=== PATIENT | female | born 1975 | race Caucasian/White ===

== ENCOUNTER → 2018-03-05 | Outpatient (CLI) | END | disposition home or self-care (01) ==

== ENCOUNTER 2018-03-13 05:44 | Inpatient (IN) | END 2018-03-14 20:25 | disposition home health service (06) | DRG 470 ==

== ENCOUNTER → 2018-03-26 | Outpatient (CLI) | END | disposition home or self-care (01) ==

== ENCOUNTER → 2018-04-02 | Outpatient (CLI) | payer BC ==
[~2018-04-02] MED LIST: AMLO5TAB4 PO; AZU500E PO; BENA40TA56 PO; FOLI-49 PO; GABA300C16 PO; HYDR200T39 PO; MET25 PO
--- NOTE | 2018-04-02 15:24 | CONS ---
Date/Time of Note Date/Time of Note DATE: 04/02/18 TIME: 15:18 Consult Date/Type/Reason Admit Date/Time Initial Consult Date Subjective Carol Reid is a 42-year-old female who is 3 weeks status post right total knee arthroplasty. She has history of rheumatoid arthritis. She was seen last week and she is here today for wound check. At last visit there was a small area of blistering on the perimeter of the Vandana dressing. Otherwise the wound was pristine at last visit. Patient states that the small blisters and eschar have healed. Denies any drainage. Denies any erythema. She does complain of some soreness and pain over her distal thigh. Otherwise her pain is better than before surgery. She is not taking any narcotic pain medication. She is not using any gait aids. She was supposed to be wearing a hinged knee brace given that her MCL was slightly stretched out. However she stopped wearing it as the brace kept falling down while she was walking. She denies any feelings of instability. Objective Weight: 145 pounds Height: 4 foot 11 inches Temperature: 98.2 Heart Rate: 73 Blood Pressure: 131/72 Respiratory Rate: 12 Exam General: Alert, oriented x3. No Acute Distress. Heart: Regular rate and rhythm. Lungs: No respiratory distress. No accessory muscle use. Right lower Extremity: Incision clean, dry, intact. The previous blisters on the perimeter of the dressing are healed. No skin breakdown, no surrounding erythema. Sensation intact to light touch in a sural, saphenous, deep peroneal, superficial peroneal, medial and lateral plantar nerve distribution. Motor is intact, patient able to dorsiflex and plantarflex ankle and extend and flex great toe. Dorsalis Pedis pulse +2, Brisk capillary refill. Compartments are soft. ROM: Extension: 0 Flexion: 90 Varus/ Valgus Stability: There is slight laxity to the MCL although within normal limits. The knee is stable in extension, flexion, and throughout range of motion A/P Stability: Stable Gait: Moderate pace. Mildly antalgic. No gait aid. Assessment/Plan Chief Complaint/Hosp Course 42-year-old female 3 weeks status post right total knee arthroplasty. There are no concerns regarding the wound today. The wound is healed well. The previous blisters have resolved. She has good range of motion. I encouraged her to continue wear the brace for a total of 6 weeks as she has some MCL attenuation. I believe this will scar down. Overall her pain is better than before surgery and she is pleased. Continue DVT prophylaxis with ASA 81 mg twice daily for a total of 6 weeks from surgery. No dental appointments for 3 months from surgery. Continue PT and transition to outpatient PT. Continue to wear hinged knee brace with range of motion as tolerated. Follow-up in 3 weeks for her 6-week postop appointment with x-rays of the right knee. MARIANA CASTREJON MD Apr 02, 2018 15:24
== END | disposition home or self-care (01) ==
LOC: HKI 14:02
PROVIDERS: ATTEND Orthopaedic Surgery Adult Reconstructive Orthopaedic Surgery
DX: M06.9 Rheumatoid arthritis, unspecified (principal); Z96.651 Presence of right artificial knee joint

== ENCOUNTER → 2018-04-27 | Outpatient (CLI) | payer BC ==
--- NOTE | 2018-04-27 17:37 | CONS ---
Date/Time of Note Date/Time of Note DATE: 04/27/18 TIME: 17:33 Consult Date/Type/Reason Admit Date/Time Initial Consult Date Subjective DOS: 03/13/2018 Procedure: Right TKA 6 weeks s/p right TKA who returns today for follow up. The patient is doing well overall. Pain is minimal. Denies F/C. Denies N/T. Denies any drainage from the incision. Narcotic Pain medication: None. Patient is continue gabapentin as she has some hypersensitivity around the knee. Gait Aids: None Pain better than before surgery: Yes Pleased with outcome. Objective Exam General: Alert, oriented x3. No Acute Distress. Heart: Regular rate and rhythm. Lungs: No respiratory distress. No accessory muscle use. Right lower Extremity: Incision is healed. No skin breakdown, no surrounding erythema. Sensation intact to light touch in a sural, saphenous, deep peroneal, superficial peroneal, medial and lateral plantar nerve distribution. Motor is intact, patient able to dorsiflex and plantarflex ankle and extend and flex great toe. Dorsalis Pedis pulse +2, Brisk capillary refill. Compartments are soft. ROM: Extension: 0 Flexion: 95 Varus/ Valgus Stability: Stable in extension, flexion, and throughout range of motion A/P Stability: Stable Gait: Quick pace. Not antalgic. No gait aid. Results/Medications Results 24 hrs Xrays obtained in clinic today and personally reviewed by myself: Bilateral AP and merchant views and a dedicated lateral of the right knee demonstrates right knee s/p TKA. Components in good position and alignment. No signs of wear, osteolysis, loosening, component failure, or fracture. No acute complications. Assessment/Plan Chief Complaint/Hosp Course This is a 42-year-old female with rheumatoid arthritis who is 6 weeks status post right TKA. Overall she is doing very well. Pain is improving. I have a low concern of her range of motion. I encouraged her to continue with physical therapy and try to obtain more flexion. DVT prophylaxis can be stopped at this time. Patient should continue to not have any dental procedures for another 6 weeks and after that she should have antibiotic prophylaxis for life. Follow-up 6 weeks MARIANA CASTREJON MD Apr 27, 2018 17:37
--- NOTE | 2018-04-29 18:13 | RADRPT ---
PROCEDURE: XR Knees. CLINICAL INDICATION: Bilateral knee pain. TECHNIQUE: Total of six views. Frontal, oblique, and lateral views of both knees. COMPARISON: Right knee radiographs dated March 26, 2018. FINDINGS: There is a right knee total arthroplasty which appears satisfactory with no fracture, dislocation, or loosening. There is a small right knee joint effusion. Right knee anterior skin t[place] have been re moved. The left knee demonstrates severe degenerative changes with joint space narrowing, osteophytes, subar ticular sclerosis, and deformity. There is no left knee joint effusion. There is no fracture, lytic lesion, or blastic lesion on either side. IMPRESSION: 1. Satisfactory postoperative appearance of right knee total arthroplasty. 2. Severe degenerative changes of the left knee. 3. Otherwise unremarkable study. RPTAT: QQ .Federico Huynh MD, MD Date Time Electronically viewed and signed by .Federico Huynh MD, MD on 04/29/2018 18:13 .R/
== END | disposition home or self-care (01) ==
LOC: MERGE 04-26 11:00 → HKI 14:11
PROVIDERS: ATTEND Orthopaedic Surgery Adult Reconstructive Orthopaedic Surgery
DX: Z47.1 Aftercare following joint replacement surgery (principal); M06.9 Rheumatoid arthritis, unspecified; Z96.651 Presence of right artificial knee joint

== ENCOUNTER → 2018-06-07 | Outpatient (CLI) | payer BC ==
--- NOTE | 2018-06-07 11:01 | CONS ---
Consult Date/Type/Reason Admit Date/Time Initial Consult Date Date/Time of Note DATE: 06/07/18 TIME: 10:58 Subjective DOS: 03/13/2018 Procedure: Right TKA 42-year-old female with rheumatoid arthritis. 3 months s/p right TKA who returns today for follow up. The patient is doing well overall. Pain is none except for some burning sensation around the incision. Denies F/C. Denies N/T. Denies any drainage from the incision. Patient states that her physical therapy has been disappointing as all they do is electrostimulation. She says that may be at the most they spent a couple minutes on range of motion strengthening only 3 times. Narcotic Pain medication: None Gait Aids: None Pain better than before surgery: Yes Pleased with outcome. Objective Vitals Weight: 150 pounds Height: 4 feet 11 inches Temperature: 98.2 Heart Rate: 74 Blood Pressure: 153/70 Respiratory Rate: 12 Exam General: Alert, oriented x3. No Acute Distress. Heart: Regular rate and rhythm. Lungs: No respiratory distress. No accessory muscle use. Right lower Extremity: Incision healed. No skin breakdown, no surrounding erythema. Sensation intact to light touch in a sural, saphenous, deep peroneal, superficial peroneal, medial and lateral plantar nerve distribution. Motor is intact, patient able to dorsiflex and plantarflex ankle and extend and flex great toe. Dorsalis Pedis pulse +2, Brisk capillary refill. Compartments are soft. ROM: Extension: 0 Flexion: 110 Varus/ Valgus Stability: Stable in extension, flexion, and throughout range of motion A/P Stability: Stable Gait: Fast pace. Non-antalgic. No gait aid. Results/Medications Home Meds Reported Medications Gabapentin* (Gabapentin*) 300 Mg Capsule, 300 MG PO DAILY, #60 CAP 03/13/18 Folic Acid* (Folic Acid*) 1 Mg Tablet, 1 MG PO DAILY, TAB 03/13/18 Methotrexate* (Methotrexate*) 2.5 Mg Tab, 10 MG PO EVERY MONDAY, TAB 03/13/18 Hydroxychloroquine Sulfate* (Hydroxychloroquine Sulfate*) 200 Mg Tablet, 200 MG PO BID, TAB 03/13/18 Sulfasalazine EC* (Azulfidine (Entab)*) 500 Mg Tabec, 500 MG PO TID, #90 TAB 03/13/18 Amlodipine Besylate* (Norvasc*) 5 Mg Tablet, 5 MG PO DAILY, TAB 03/13/18 Benazepril Hcl* (Benazepril Hcl*) 40 Mg Tablet, 40 MG PO DAILY, #30 TAB 03/13/18 Imaging Xrays obtained in clinic today and personally reviewed by myself: Bilateral AP and merchant views and a dedicated lateral of the right knee demonstrates right knee s/p TKA. Components in good position and alignment. No signs of wear, osteolysis, loosening, component failure, or fracture. No acute complications. Assessment/Plan Hospital Course (Demo Recall) 42-year-old female doing well 3 months s/p right TKA -Gabapentin refill for burning sensation around incision -Continue strengthening and range of motion exercises at home. These exercises were reviewed in clinic - DVT Prophylaxis: Completed - FU 9 months for repeat clinical and radiographic exam, or earlier if there are any issues or she wants to discuss her left knee - Antibiotic dental prophylaxis for any cleaning or procedure MARIANA CASTREJON MD Jun 07, 2018 11:01
--- NOTE | 2018-06-08 05:36 | RADRPT ---
PROCEDURE: Bilateral knee series CLINICAL INDICATION: Pain TECHNIQUE: AP weightbearing 45 degrees flexion, bilateral lateral weightbearing, bilateral upright we ightbearing and bilateral sunrise views are obtained . COMPARISON: 04/27/2018 bilateral knee series FINDINGS: Right knee: Again noted is the right total arthroplasty with intact hardware and alignment. No significant interv al change is noted when compared with prior study. No evidence for acute fractures, dislocations or l oosening. A small right knee joint effusion is present. Left knee: Severe tricompartmental joint space narrowing, osteophyte formation, subarticular sclerosis and osteo phytes are noted with associated mild deformity. No acute fractures or dislocations are present. A mo derate knee effusion is present. IMPRESSION: 1. Status post right total knee arthroplasty with intact hardware and no evidence for fractures, dis locations or loosening. 2. Severe left knee tricompartmental osteoarthritis with severe joint space narrowing and sclerosis. RPTAT: HDC .Rita Castelan MD, MD Date Time Electronically viewed and signed by .Rita Castelan MD, on 06/08/2018 05:35 .C/
== END | disposition home or self-care (01) ==
LOC: HKI 09:46
PROVIDERS: ATTEND Orthopaedic Surgery Adult Reconstructive Orthopaedic Surgery
DX: M06.9 Rheumatoid arthritis, unspecified (principal); Z96.651 Presence of right artificial knee joint
CPT/HCPCS: 73564

== ENCOUNTER → 2018-10-08 | Outpatient (CLI) | payer BC ==
--- NOTE | 2018-10-08 16:04 | CONS ---
Consult Date/Type/Reason Admit Date/Time Initial Consult Date Reason for Consultation Left knee pain Date/Time of Note DATE: 10/08/18 TIME: 15:57 Subjective Carol Reid is a 42-year-old female with rheumatoid arthritis well-known to me. She is on methotrexate and sulfasalazine. She is 8 months status post right total knee arthroplasty for rheumatoid arthritis. She has no complaints with this except for tenderness when kneeling. She presents today with worsening left knee pain. She had a steroid injection by her lead installer about 3 months ago to her left knee. This helped for about 2 months. Most of her pain is around her patella and anterior of the knee. She does have crepitance. She does admit to a limp. It does wake her up at night. Pain is rated 7/10. Is described as sharp. The pain is especially exacerbated when walking downstairs. Resting, ice, injection may feel better. Denies numbness and tingling. No previous surgery to this knee. At this time she is now not wanting to proceed with left total knee arthroplasty. She would like to continue conservative treatment. Objective Vitals Weight: 160 pound Height: 4 foot 11 inches Temperature: 90.4 Heart Rate: 80 Blood Pressure: 144/73 Respiratory Rate: 12 Exam General: Alert, oriented x3. No Acute Distress. Heart: Regular rate and rhythm. Lungs: No respiratory distress. No accessory muscle use. Musculoskeletal: Left Knee This is a well developed female who is alert, oriented times three and in no apparent distress. Skin is intact over the left knee as well as the lower extremity with no abrasions, lacerations, or ulcerations. Observation of the patient's gait reveals an antalgic gait with No thrust. Frontal plane alignment is neutral. There is mild pain on palpation of medial and lateral joint line. The patient demonstrates grinding anteriorly with ROM. Range of motion: 5 extension to approximately 100 degrees of flexion. Collateral ligament testing reveals no instability with varus or valgus stress at 0 and 30 degrees of flexion. Negative Guilherme's and negative posterior drawer. Neurovascularly intact with 5/5 EHL/tibialis anterior/gastroc. Sensation intact to light touch in a sural, saphenous, deep peroneal, superficial peroneal, medial and lateral plantar nerve distribution. Palpable, symmetric dorsalis pedis and posterior tibial pulses in both lower extremities. Hip examination normal. Results/Medications Home Meds Reported Medications Gabapentin* (Gabapentin*) 300 Mg Capsule, 300 MG PO DAILY, #60 CAP 03/13/18 Folic Acid* (Folic Acid*) 1 Mg Tablet, 1 MG PO DAILY, TAB 03/13/18 Methotrexate* (Methotrexate*) 2.5 Mg Tab, 10 MG PO EVERY MONDAY, TAB 03/13/18 Hydroxychloroquine Sulfate* (Hydroxychloroquine Sulfate*) 200 Mg Tablet, 200 MG PO BID, TAB 03/13/18 Sulfasalazine EC* (Azulfidine (Entab)*) 500 Mg Tabec, 500 MG PO TID, #90 TAB 03/13/18 Amlodipine Besylate* (Norvasc*) 5 Mg Tablet, 5 MG PO DAILY, TAB 03/13/18 Benazepril Hcl* (Benazepril Hcl*) 40 Mg Tablet, 40 MG PO DAILY, #30 TAB 03/13/18 Imaging The patient received a standard set of films today that were personally reviewed. Imaging included a standing bilateral knee AP, PA flexion, merchant views and a dedicated lateral of the affected knee: There is neutral alignment of the knee. There is complete loss of joint space medial and lateral compartment(s) and significant loss of joint space in the patellofemoral compartment. There is osteophyte formation. There is subchondral sclerosis. There are subchondral cysts. Degenerative changes are most severe in the medial and lateral compartment(s) Assessment/Plan Hospital Course (Demo Recall) 42-year-old female with rheumatoid arthritis presenting with end-stage rheumatoid arthritis of the left knee. She did not have successful treatment a steroid injection as it only helped the pain for 2 months. However she is not ready for another surgery. She would like to try other options. At this time I am recommending hyaluronic acid injections as an alternative to steroid injections as they previously failed in this patient. In addition I would like her to do physical therapy as this may help her patellofemoral pain. Also I like her to ask her primary care physician if NSAID regiment would be appropriate given her history of hypertension. Submit authorization for Monovisc. Submit authorization for physical therapy. Ask PCP about meloxicam. MARIANA CASTREJON MD Oct 08, 2018 16:04
--- NOTE | 2018-10-09 17:01 | RADRPT ---
PROCEDURE: XR Knees. CLINICAL INDICATION: Bilateral knee pain. TECHNIQUE: Total of eight views. Weightbearing frontal, oblique, and lateral views of the both kne es. Patellar views of both knees. COMPARISON: 06/07/2018. FINDINGS: On the right side, there is a total knee arthroplasty which appears satisfactory with no fracture, di slocation, or loosening. On the left side, there are severe degenerative changes with osteophytes, joint space narrowing, and deformity involving all 3 joint compartments. There is no joint effusion. There is no lytic or blastic lesion. IMPRESSION: 1. Satisfactory postoperative appearance of the right knee. 2. Severe degenerative changes of the left knee. RPTAT: QQ .Federico Huynh MD, MD Date Time Electronically viewed and signed by .Federico Huynh MD, on 10/09/2018 16:48 .R/
== END | disposition home or self-care (01) ==
LOC: HKI 14:36
PROVIDERS: ATTEND Orthopaedic Surgery Adult Reconstructive Orthopaedic Surgery
DX: M06.862 Other specified rheumatoid arthritis, left knee (principal); Z96.651 Presence of right artificial knee joint
CPT/HCPCS: 73562; Z7500; G0463